=== PATIENT | male | born 1975 | race Hispanic/Latino ===

== ENCOUNTER 2016-09-01 23:34 | Emergency (ER) | payer SELFPAY ==
[~2016-09-01] VITALS: Ht 160 cm; Wt 90.0 kg
[2016-09-02] MEDS ORDERED: NAPROSYN500 MG PO (00:12)
[2016-09-02 00:15] VITALS: BP 121/80
== END 2016-09-02 00:15 | disposition home or self-care (01) | DRG 563 ==
LOC: ED 23:34
DX: S93.402A Sprain of unspecified ligament of left ankle, initial encounter (principal); X50.1XXA Overexertion from prolonged static or awkward postures, initial encounter; Y92.512 Supermarket, store or market as the place of occurrence of the external cause; Y99.9 Unspecified external cause status

== ENCOUNTER 2018-12-24 04:29 | Inpatient (IN) | payer SELFPAY ==
[~2018-12-24] VITALS: Ht 162.6 cm; Wt 103.0 kg
[2018-12-24] VITALS (15 sets, daily range): BP systolic 113–159; BP diastolic 61–100
[~2018-12-24 04:29] MED LIST: NAPROSYN500 MG PO
--- NOTE | 2018-12-24 04:31 | NUR ---
BY WC TO ROOM
[2018-12-24 04:57] LABS: HEMATOCRIT 51.6 % (39.0-50.0); HEMOGLOBIN 16.8 g/dl (14.0-18.0); IMMATURE GRANULOCYTES 0.3 % (0.0-5.0); MEAN CELL VOLUME 90.5 fL CALC (80.0-100.0); MEAN CORPUSCULAR HGB 29.5 pG CALC (26.0-32.0); MEAN CORPUSCULAR HGB CONC 32.6 g/L CALC (32.0-36.0); NEUT# 3.82 thou/uL (1.82-7.42); RED BLOOD COUNT 5.7 mill/uL (4.70-6.10); RED CELL DISTRI WIDTH 13.4 % (11.5-15.5)
[2018-12-24 05:11] LABS: ALBUMIN 4.5 g/dL (3.2-5.0); ALKALINE PHOSPHATASE 116 u/l (38-126); AMYLASE 90 u/l (30-110); ANION GAP 15 (6-22 (CALC)); BILIRUBIN, TOTAL 0.4 mg/dL (0.0-1.4); BUN 20 mg/dL (9-20); BUN/CREATININE RATIO 31 (12-20 (CALC)); CARBON DIOXIDE 30 mmol/l (22-30); CHLORIDE 98 mmol/l (95-108); CREATININE 0.7 mg/dL (0.7-1.3); GFR > 60 ML/MIN (>=60 (CALC)); GFR FOR AFR.AMER. > 60 ML/MIN (>=60 (CALC)); LIPASE 103 u/l (23-300); POTASSIUM 4.6 mmol/l (3.5-5.1); SGOT/AST 60 u/l (17-59); SODIUM 138 mmol/l (137-146); TOTAL PROTEIN 7.9 g/dL (6.3-8.2)
[2018-12-24 05:22] LABS: MYOGLOBIN 28 ng/mL (0 - 121)
--- NOTE | 2018-12-24 05:35 | NUR ---
PT HAS LOUD SNORING RESP EFFORT SAO2 DIPS TRO MID 80'S WHEN ASLEEP BUT POPS UP TO 96% WHEN AWAKENED.W/P/D SKIN
--- NOTE | 2018-12-24 06:03 | NUR ---
AWAKENED FROM SLEEP DENIES CP SNORING RESP EFFORT WHEN ASLEEP.WITHOUT CONGESTION W/P/D SKIN SR NO ECTOPY
--- NOTE | 2018-12-24 07:05 | NUR ---
REPORT TAKEN FROM BORA RN FOR CONTINUATION OF CARE.
--- NOTE | 2018-12-24 07:07 | NUR ---
WALKED INTO ROOM, PT LOUDLY SNORING BUT EASILY AWAKEN, SATS WERE 82% BUT WHEN WOKE UP SATS WENT STRAIGHT UP TO 96%, PT STATES HAS NEVER BEEN DIAGNOSED WITH SLEEP APNEA, BUT HAS HAD PROBLEMS MOST OF HIS ADULT LIFE WITH RESTLESS SLEEPING. PT IS A MOUTH BREATHER. ALERT/ORIENTED X3, DR. ACOSTA SPEAKING TO PT ABOUT POSSIBLE ADMISSION AND PLACING HIM ON BIPAP. PT AGREES.
--- NOTE | 2018-12-24 07:28 | NUR ---
PT RESTING QUIETLY ON STRETCHER, CALL LIGHT WITHIN REACH, SIDE RAILS UIP, BIPAP ON PT. SATS 98%
--- NOTE | 2018-12-24 07:29 | NUR ---
PT PLACED ON BIPAP PER DR. ENRIQUEZ 17/09/% PT TOLLERATING WELL. REPEAT AQBG UN 1 HR
--- NOTE | 2018-12-24 07:35 | NUR ---
SATS AT 98% ON BIPAP, PT SLEEPING AT THIS TIME, URINE OUTPUT APPROX 80CC LIGHT YELLOW COLOR. PLACED PAIR OF RED TENNIS SHOES AND WHITE TSHIRT AND BLUE BALL HAT IN BELONGINGS BAG. IV SITE HEALTHY AND PATENT.
[2018-12-24 08:05] LABS: URINE BILIRUBIN - DIPSTICK NEGATIVE (NEGATIVE); URINE BLOOD DIPSTICK NEGATIVE (NEGATIVE); URINE COLOR YELLOW; URINE GLUCOSE - DIPSTICK NEGATIVE (NEGATIVE); URINE KETONE NEGATIVE (NEGATIVE); URINE LEUK ESTERASE NEGATIVE (NEGATIVE); URINE NITRITE - DIPSTICK NEGATIVE (Negative); URINE PROTEIN - DIPSTICK NEGATIVE (NEG-TRACE); URINE SPECIFIC GRAVITY <=1.005; URINE UROBILINOGEN - DIPSTICK 0.2 E.U./dL (0.2)
--- NOTE | 2018-12-24 08:10 | NUR ---
PT ADMITTED TO ICU BED 4 FROM ED VIA STRETCHER FOR CP,PALPITATIONS SLEEP APNEA,RESPIRATORY ACIDOSIS.TRANSFERRED SELF WITH STEADY GAIT. PT A&OX4, ABLE TO MAKE NEEDS KNOWN. NSR ON TELEMETRY, HR 76. REPORT 3/10 PAIN AT CHEST, NITRO PATCH INPLACE FROM ED. REMAINS ON 02@2LPM VIA NC. RESPIRATIONS EVEN/UNLABORED, LS CLEAR THROUGHOUT. ABDOMEN SOFT, NON-TENDER. PT REPORTS LBM 9-22-19. BSX4 ACTIVE, PT NOTED WITH MULTPLE PSORIASIS LEGIONS FROM SCALP TO FEET. CONTINENT OF B&B, URINAL AT BEDSIDE. PT ORIENTED TO BED, CALL LIGHT SYSTEM, UNIT.BIPAP ON STANDBY AT BEDSIDE. PT VERBALIZED UNDERSTANDING TO LIDIA CALIX LPN. CALL LIGHT IN REACH. WILL MONITOR.
--- NOTE | 2018-12-24 08:21 | NUR ---
PT REPORT GIVEN, AND PT TAKEN TO FLOOR PER STRETCHER AND MONITER.
--- NOTE | 2018-12-24 08:30 | NUR ---
PT REPOSITIONED SELF, BREAKFAST TRAY PROVIDED.
--- NOTE | 2018-12-24 09:22 | NUR ---
RT NOTIFIED, PT SLEEPING, O2SAT DROP TO 70-80%. CAROL AT BEDSIDE TO INITIATE BIPAP, SET RATE 16/6, FIO2@45%. WILL MONITOR
--- NOTE | 2018-12-24 09:55 | NUR ---
NOTIFIED RT TO CHECK BIPAP, ALARMS SOUNDED, PT 02SAT@80%. RT AT BEDSIDE TO MAKE ADJUSTMENTS, WILL MONITOR. PT REMAINS IN AND OUT OF SLEEP, TOLERATING ADJUSTMENTS WELL, SEE RT NOTE. WILL MONITOR CLOSELY.
--- NOTE | 2018-12-24 10:17 | NUR ---
CAROL RT AT BEDSIDE FOR BLOOD GAS
--- NOTE | 2018-12-24 10:30 | NUR ---
DR. MACK AT BEDSIDE FOR ASSESSMENT AND TO DISCUSS PLAN OF CARE. NEW ORDERS RECIEVED.
--- NOTE | 2018-12-24 10:33 | NUR ---
DR. MACK NOTIFIED OF CRITICAL LAB, NO NEW ORDERS.
[2018-12-24 11:17] LABS: MAGNESIUM 1.9 mg/dL (1.6-2.3)
--- NOTE | 2018-12-24 12:06 | NUR ---
PT RESTING IN BED WITH EYES CLOSED, AROUSES EASILY. PT REMAINS ON BIPAP. SA02@97%. NSR ON TELEMETRY, HR 88. CALL LIGHT IN REACH, WILL MONITOR.
--- NOTE | 2018-12-24 13:04 | NUR ---
PT SLEEPING WITH BIPAP IN PLACE, NSR ON TELEMETRY, CALL LIGHT IN REACH, MONITORING CLOSELY.
--- NOTE | 2018-12-24 14:15 | NUR ---
PT INCONTINENT ON URINE, PERICARE PROVIDED, LINENS CHANGED. PT OFF BIPAP TO EAT, GF AT BEDSIDE. RESPIRATIONS EVEN/UNLABORED. SAO2@97% ON @2LPM VIA NC. CALL LIGHT IN REACH. WILL MONITOR.
--- NOTE | 2018-12-24 14:58 | NUR ---
PT ASSISTED TO BSC, SMALL BM, THEN BACK TO BED. PT REMIANS OFF BIPAP. 02@2LPM. PT TOLD TO NOTIFY STAFF WHEN TIRED, FOR NAPS OR SLEEPING. PT VERBALIZED UNDERSTANDING. CALL LIGHT IN REACH, WILL MONITOR.
--- NOTE | 2018-12-24 15:12 | NUR ---
BIPAP REPLACED, PT FALLING ASLEEP.
--- NOTE | 2018-12-24 16:06 | NUR ---
PT SLEEPING WITH BIPAP IN PLACE, RESPIRATIONS EVEN/UNLABORED, NSR ON TELEMETRY, HR 92. WILL MONITOR.
--- NOTE | 2018-12-24 17:25 | NUR ---
RT AT BEDSIDE TO ASSESS BIPAP, PT SLEEPING, RESPIRATIONS EVEN/UNLABORED.
--- NOTE | 2018-12-24 18:15 | NUR ---
PT RESTING WITH EYES CLOSED, BIPAP IN PLACE. SR ON TELEMETRY, HR 80. CALL LIGHT IN REACH. WILL MONITOR.
--- NOTE | 2018-12-24 18:57 | NUR ---
REPORT RECEIVED FROM MONICA GOOD. PT RESTING IN BED SEMI FOWLERS WITH EYES CLOSED AND NO SIGNS OF DISTRESS. RESPIRATIONS EVEN AND UNLABORED ON BIPAP WITH FI02 AT 45%; OXYGEN SATURATION 93%. SAFETY MEASURES IN PLACE. CALL LIGHT WITHIN REACH.
--- NOTE | 2018-12-24 19:51 | NUR ---
PT OFF BIPAP. CURRENTLY ON NC 3L; SITTING UP EATING DINNER. RT AT BEDSIDE. ASSESSMENT COMPLETED. PT DENIES PAIN AND SOB. NITRO PASTE REMOVED FROM LEFT CHEST. VSS. PLAN OF CARE REVIEWED. PT ENCOURAGED TO VERBALIZE CONCERNS. STATES UNDERSTANDING. CALL LIGHT WITHIN REACH.
--- NOTE | 2018-12-24 22:46 | NUR ---
RT AT BEDSIDE TO REAPPLY BIPAP. PT VOIDED 450ML DARK YELLOW URINE WITHOUT DIFFICULTY.
--- NOTE | 2018-12-24 22:57 | NUR ---
MAGNESIUM SULFATE NOW INFUSING PER PROTOCOL FOR MAG OF 1.9; IV SITE APPEARS HEALTHY AND FLUSHED WELL. PT HAS NO REQUESTS OR CONCERNS AT THIS TIME.
[2018-12-25] VITALS (16 sets, daily range): BP systolic 119–153; BP diastolic 66–95
--- NOTE | 2018-12-25 01:27 | NUR ---
MAG SULFATE COMPLETED AND IV SITE FLUSHED. PT ASLEEP WITH NO SIGNS OF DISTRESS. RESPIRATIONS EVEN AND UNLABORED WITH BIPAP IN PLACE. NSR ON TELEMETRY HR IN THE 80S-90S. VSS.
--- NOTE | 2018-12-25 04:00 | NUR ---
NO ACUTE CHANGES IN CONDITION THROUGHOUT THE NIGHT. VSS. SAFETY MEASURES IN PLACE. CALL LIGHT WITHIN REACH.
--- NOTE | 2018-12-25 05:17 | NUR ---
RT AT BEDSIDE FOR EKG. BIPAP REMAINS IN PLACE AT 32% FIO2; OXYGEN SATURATION 97%.
--- NOTE | 2018-12-25 06:29 | NUR ---
PT RESTING SEMI FOWLERS WITH EYES CLOSED. STABLE CONDITION. CONTINUES TO DENY PAIN AND SOB. AWAKENS TO VERBAL STIMULI.
--- NOTE | 2018-12-25 07:17 | NUR ---
pt resting in bed with eyes closed; easily aroused; offers no complaints; assessment completed at this time; pt alert and oriented; denies pain/ chest pain; no n/v/sob noted; pt djiboutian only but able to understand some thai and make needs known; hydraulic governor assembler line utilized/ Virgilio ID # [id number]; resp even and unlabored; lungs clear bipap intact with 32% FiO2; converted to 3L nc at this time; hr reg; strong pulses; no edema noted; sr on monitor; abd soft with bs present; no bm noted per sba underwriter; no urine to inspect at this time; urinal at bedside; #20 flushed and patent to lac; no redness or edema noted at site; plan of care explained; pt denies drinking ETOH since last week via hydraulic governor assembler; call light within reach; will continue to monitor
--- NOTE | 2018-12-25 08:02 | NUR ---
awake in bed; no apparent distress noted; pt offers no complaints; sr on monitor; no distress noted; will continue to monitor
--- NOTE | 2018-12-25 08:35 | NUR ---
Dr Almonte present at bedside to assess pt and discuss plan of care; Andre Cormier, RN at bedside to interpret; o2 removed at this time; o2 sats maintained at 93%; pt set up for am care; will continue to monitor
--- NOTE | 2018-12-25 09:24 | NUR ---
awake in bed; visitor x1 present at bedside; pt noted conversing well in danish with visitor; walk test explained; will continue to monitor
--- NOTE | 2018-12-25 09:38 | NUR ---
walk test completed per RT Joelle; monitoring attachments explained and re attached; will continue to monitor
--- NOTE | 2018-12-25 10:05 | NUR ---
awake in bed; no apparent distress noted; denies pain; sr on monitor; o2 per nc at 2L; call light within reach; will continue to monitor
--- NOTE | 2018-12-25 10:20 | NUR ---
RICCI Espinosa and Juliocesar Tong present at bedside;
--- NOTE | 2018-12-25 12:03 | NUR ---
awake in bed; no apparent distress noted; pt offer no complaints; denies pain/ chest pain; sr on monitor; iv intact; call light within reach; will continue to monitor
--- NOTE | 2018-12-25 14:03 | NUR ---
pt awake in bed; no distress noted; resp even and unlabored; o2 per nc; sr on monitor; call light within reach; will continue to monitor
--- NOTE | 2018-12-25 15:54 | NUR ---
Dr Almonte present at bedside to assess pt and discuss plan of care/ discharge
--- NOTE | 2018-12-25 15:54 | NUR ---
Discharge instructions given. Patient verbalizes understanding of same. Discharged in stable condition via Wheelchair to Home with friend. All belongings sent with pt.
--- NOTE | 2018-12-25 16:00 | NUR ---
awake in bed; npo apparent distress noted; sr on monitor; aware of pending discharge
--- NOTE | 2018-12-25 16:05 | NUR ---
[facility] called per this telegraphic typewriter installer; spoke with Ofelia; information/ demographic provided for follow up appt; f/u appt scheduled for 12/27/18 at 10:[address] [place] [address] Huston; cardiology and sleep study availability confirmed;
--- NOTE | 2018-12-25 16:45 | NUR ---
discharge instructions reviewed in detail with pt; Andre Cormier RN at bedside to interpret; pt informed of scheduled appt with Dr Huston at [facility]; #20 removed from lac with catheter tip intact;
== END 2018-12-25 16:54 | disposition home or self-care (01) | DRG 205 ==
LOC: ED 04:29 → ED-I 06:55 → ED 07:15 → ICU 07:16
PROVIDERS: Emergency Medicine; ADMIT Internal Medicine; ATTEND Internal Medicine
PROC: 5A09357 Assistance with Respiratory Ventilation, Less than 24 Consecutive Hours, Continuous Positive Airway Pressure (ICD-10-PCS; principal; 2018-12-24)
DX: E66.2 Morbid (severe) obesity with alveolar hypoventilation (principal); J96.02 Acute respiratory failure with hypercapnia; J96.01 Acute respiratory failure with hypoxia; E87.2 Acidosis; G47.33 Obstructive sleep apnea (adult) (pediatric); F10.10 Alcohol abuse, uncomplicated; Z68.39 Body mass index [BMI] 39.0-39.9, adult
CPT/HCPCS: J3475

== ENCOUNTER 2020-01-07 11:00 | Emergency (ER) | payer SELFPAY ==
[~2020-01-07] VITALS: Ht 162.6 cm; Wt 100.0 kg
[2020-01-07] MEDS ORDERED: COLCHICINE0.6 M2 PO (11:17)
[2020-01-07] MEDS ORDERED: MOTRIN400 MG PO (11:17)
[2020-01-07] MEDS ORDERED: GABAPENTIN300 M2 PO (11:17)
[2020-01-07 12:34] VITALS: BP 122/69
== END 2020-01-07 12:34 | disposition home or self-care (01) | DRG 554 ==
LOC: ED 11:00
DX: M10.062 Idiopathic gout, left knee (principal); M10.061 Idiopathic gout, right knee; E66.01 Morbid (severe) obesity due to excess calories; F17.200 Nicotine dependence, unspecified, uncomplicated; L40.9 Psoriasis, unspecified; T42.6X6A Underdosing of other antiepileptic and sedative-hypnotic drugs, initial encounter; Z91.128 Patient's intentional underdosing of medication regimen for other reason

== ENCOUNTER 2020-02-03 20:01 | Observation (INO) | payer SELFPAY ==
[~2020-02-03] VITALS: Ht 162.6 cm; Wt 94.0 kg
[~2020-02-03 20:01] MED LIST changes: +COLCHICINE0.6 M2 PO; +GABAPENTIN300 M2 PO; +MOTRIN400 MG PO
--- NOTE | 2020-02-03 20:10 | NUR ---
TO ROOM VIA W/C..TRANSFERRED TO BED.
[2020-02-03 20:51] LABS: IMMATURE GRANULOCYTES 0.2 % (0.0-5.0); MEAN CELL VOLUME 87.1 fL CALC (80.0-100.0); MEAN CORPUSCULAR HGB 28.2 pG CALC (26.0-32.0); MEAN CORPUSCULAR HGB CONC 32.4 g/dL CAL (32.0-36.0); NEUT# 4.86 thou/uL (1.82-7.42); RED BLOOD COUNT 4.79 mill/uL (4.70-6.10); RED CELL DISTRI WIDTH 12.6 % (11.5-15.5)
[2020-02-03 20:54] LABS: HEMATOCRIT 41.7 % (39.0-50.0); HEMOGLOBIN 13.5 g/dl (14.0-18.0)
[2020-02-03 21:11] LABS: ALBUMIN 3.8 g/dL (3.2-5.0); ALKALINE PHOSPHATASE 72 u/l (38-126); AMYLASE 58 u/l (30-110); ANION GAP 11 (6-22 (CALC)); BILIRUBIN, TOTAL 0.5 mg/dL (0.0-1.4); BUN 6 mg/dL (9-20); BUN/CREATININE RATIO 11 (12-20 (CALC)); CARBON DIOXIDE 32 mmol/l (22-30); CHLORIDE 97 mmol/l (95-108); CREATININE 0.6 mg/dL (0.7-1.3); GFR > 60 ML/MIN (>=60 (CALC)); GFR FOR AFR.AMER. > 60 ML/MIN (>=60 (CALC)); LIPASE 44 u/l (23-300); POTASSIUM 4.2 mmol/l (3.5-5.1); SGOT/AST 30 u/l (17-59); SODIUM 137 mmol/l (137-146); TOTAL PROTEIN 7.1 g/dL (6.3-8.2)
[2020-02-03 21:12] LABS: URINE BILIRUBIN - DIPSTICK NEGATIVE (NEGATIVE); URINE BLOOD DIPSTICK NEGATIVE (NEGATIVE); URINE COLOR YELLOW; URINE GLUCOSE - DIPSTICK NEGATIVE (NEGATIVE); URINE KETONE NEGATIVE (NEGATIVE); URINE LEUK ESTERASE NEGATIVE (NEGATIVE); URINE NITRITE - DIPSTICK NEGATIVE (Negative); URINE PH 8.5 (4.5-8.0); URINE PROTEIN - DIPSTICK NEGATIVE (NEG-TRACE); URINE UROBILINOGEN - DIPSTICK 0.2 E.U./dL (0.2)
--- NOTE | 2020-02-03 21:15 | NUR ---
RESTING QUIETLY AWAITING TEST RESULTS
[2020-02-03 21:22] LABS: MYOGLOBIN 21 ng/mL (0 - 121)
--- NOTE | 2020-02-03 22:00 | NUR ---
RESTING QUIETLY AWAITING TEST RESULTS
--- NOTE | 2020-02-03 23:09 | NUR ---
AWAITING DISPO. VSS. AGARWAL.
--- NOTE | 2020-02-03 23:50 | NUR ---
Admission Note Report Given to: MONICA MCINTYRE Transported by: X Wheelchair Stretcher Transported with: X Nurse Transporter X Patent IV O2 X Automotive Product Specialist Location: ICU X MS2
--- NOTE | 2020-02-03 23:55 | NUR ---
PATIENT ARRIVES VIA WHEELCHAIR ACCOMPANIED BY ER NURSE JOSHUA. PT AWAKE, ORIENTED X4. CENTRAL AFRICAN SPEAKING, ONLY ADMITS TO KNOWING SIMPLE WORDS IN [place]. DENIES CHEST PAIN, HAS BILATERAL KNEE PAIN THAT HE REPORTS RADIATES TO HIS HEELS, RATES PAIN NOW 8/10 AND PAIN MEDICATION AT ER DID PROVIDE RELIEF. NURSE ASSESSMENT PERFORMED. POC DISCUSSED, PATIENT UNDERSTANDS AND AGREES. LAC 20 IV INTACT, FLUSHES PROPERLY, SALINE LOCKED. ON RA, NO SOB NOTED, AFEBRILE, O2 SAT 94%. WAS SWABBED FOR COVID, NO SYMPTOMS PRESENT, IGG WAS POSITIVE. ONLY MEDICATION HE TAKES AT HOME IS GABAPENTIN 300 MG TID, WHICH HE STATES HE TAKES MAYBE TWICE A DAY. HE REPORTS HE DRINKS HERBAL TEAS FROM A PLANT HE HAS AT HOME. PATIENT DOES SAY HE HAS BEEN HAVING STRESS DUE TO NOT BEING ABLE TO WORK, FINANCIAL INSTABILITY, AND NOT BEING ABLE TO SEND MONEY TO HIS CHILDREN IN [place] FOR THEIR SCHOOL, PT DOES BEGIN TO TEAR UP, PT NEEDS REASSURANCE AT TIMES. REQUESTS FOOD AND ICED WATER, WILL PROVIDE. SELF REPSOITIONS, USES A CRUTCH TO WALK. PATCHES OF DRY SKIN NOTED TO ALL EXTREMETIES, ABDOMEN AND BACK SIDE FROM PSORIASIS. CALL LIGHT WITHIN REACH.
[2020-02-04] VITALS: BP 117/60
--- NOTE | 2020-02-04 03:33 | NUR ---
PAIN MEDICATION GIVEN. NO OTHER COMPLAINTS, DENIES CHEST PAIN. CALL LIGHT WITHIN REACH.
[2020-02-04 04:00] VITALS: BP 124/76
--- NOTE | 2020-02-04 05:47 | NUR ---
EKG TAKEN THIS AM, NSR.
--- NOTE | 2020-02-04 06:50 | NUR ---
REPORT RECEIVED FROM NIGHT NURSE. PT RESTING IN BED. NO S/S OF DISTRESS AT THIS TIME. SAFETY PRECAUTIONS IN PLACE. WILL CONTINUE TO MONITOR.
--- NOTE | 2020-02-04 08:50 | NUR ---
PT note: Patient is screened for PT intervention and no needs are indentified at this time
--- NOTE | 2020-02-04 08:55 | NUR ---
PT RESTING IN BED, ALERT AND ORIETNED. RESPIRATIONS ARE EVEN AND UNLABORED ON RA. LUNGS SOUND DIMINISHED. PEDAL PULSES ARE WEAK. PT DENIES ANY PAIN OR DISCOMFORT AT THIS TIME. PT ASSISTED TO THE RESTROOM PER REQUEST. PT ENCOURAGED TO CALL FOR ASSISTANCE WHEN FINISHED. SAFETY PRECAUTIONS IN PLACE. WILL CONTINUE TO MONITOR.
[2020-02-04 08:57] VITALS: BP 117/75
[2020-02-04 11:15] VITALS: BP 115/73
[2020-02-04] MEDS ORDERED: IBUPROFEN600 MG PO (12:32)
[2020-02-04] MEDS ORDERED: MEDDOSEPAK PO (12:32)
--- NOTE | 2020-02-04 12:46 | NUR ---
PT RESTING IN BED ALERT AND ORIENTED.NO S/S OF DISTRESS AT THIS TIME. SAFETY PRECAUTIONS IN PLACE. WILL CONTINUE TO MONITOR.
--- NOTE | 2020-02-04 14:44 | NUR ---
PT RESTING IN BED, ALERT AND ORIENTED. PT PROVIDED WITH DISCHARGE PACKET AND PRESCRIPTIONS, PT DENIES ANY QUESTIONS AT THIS TIME. IV #20 LAC REMOVED CATHETER INTACT. ASSISTED PT TO MAKE A CALL. SAFETY PRECAUTIONS IN PLACE. WILL CONTINUE TO MONITOR.
--- NOTE | 2020-02-04 15:00 | NUR ---
Discharge instructions given. Patient verbalizes understanding of same. Discharged in 3stable condition via Wheelchair to Home with staff. All belongings sent with pt.
== END 2020-02-04 15:00 | disposition home or self-care (01) | DRG 313 ==
LOC: ED 20:01 → ED-I 20:46 → ED 23:39 → MS2 23:40
PROVIDERS: Emergency Medicine; ADMIT Internal Medicine; ATTEND Internal Medicine
DX: R07.9 Chest pain, unspecified (principal); M25.562 Pain in left knee; M25.561 Pain in right knee; E66.01 Morbid (severe) obesity due to excess calories; L40.9 Psoriasis, unspecified; R76.8 Other specified abnormal immunological findings in serum; F17.200 Nicotine dependence, unspecified, uncomplicated; Z68.35 Body mass index [BMI] 35.0-35.9, adult; Z20.828 Contact with and (suspected) exposure to other viral communicable diseases
CPT/HCPCS: G0378

== ENCOUNTER 2020-09-22 20:54 | Observation (INO) | payer SELFPAY ==
[~2020-09-22] VITALS: Ht 162.6 cm; Wt 100.0 kg
[2020-09-22 00:49] VITALS: BP 118/82
[~2020-09-22 20:54] MED LIST changes: +IBUPROFEN600 MG PO; +MEDDOSEPAK PO
--- NOTE | 2020-09-22 21:00 | NUR ---
PT MOVED TO ROOM 10 FOR TRIAGE.
[2020-09-22 21:26] LABS: HEMOGLOBIN 13.8 g/dl (14.0-18.0); IMMATURE GRANULOCYTES 0.8 % (0.0-5.0); MEAN CELL VOLUME 87.4 fL CALC (80.0-100.0); MEAN CORPUSCULAR HGB 29.4 pG CALC (26.0-32.0); MEAN CORPUSCULAR HGB CONC 33.7 g/dL CAL (32.0-36.0); NEUT# 7.64 thou/uL (1.82-7.42); RED BLOOD COUNT 4.69 mill/uL (4.70-6.10); RED CELL DISTRI WIDTH 12.5 % (11.5-15.5)
[2020-09-22 21:42] LABS: ALBUMIN 4.4 g/dL (3.2-5.0); ALKALINE PHOSPHATASE 105 u/l (38-126); ANION GAP 18 (6-22 (CALC)); BILIRUBIN, TOTAL 0.3 mg/dL (0.0-1.4); BUN 16 mg/dL (9-20); BUN/CREATININE RATIO 22 (12-20 (CALC)); CARBON DIOXIDE 26 mmol/l (22-30); CHLORIDE 95 mmol/l (95-108); CREATININE 0.7 mg/dL (0.7-1.3); GFR > 60 ML/MIN (>=60 (CALC)); GFR FOR AFR.AMER. > 60 ML/MIN (>=60 (CALC)); POTASSIUM 3.9 mmol/l (3.5-5.1); SGOT/AST 35 u/l (17-59); SODIUM 135 mmol/l (137-146)
--- NOTE | 2020-09-22 22:00 | NUR ---
RESTING QUIETLY AWAITING TEST RESULTS.
--- NOTE | 2020-09-22 23:00 | NUR ---
AWAITING TEST RESULTS/DISPO.
--- NOTE | 2020-09-23 00:43 | NUR ---
Admission Note Report Given to: MONICA THOMAS Transported by: X Wheelchair Stretcher Transported with: X Nurse Transporter X Patent IV O2 Engineering Systems Analyst Location: ICU X MS2
--- NOTE | 2020-09-23 01:45 | NUR ---
PATIENT ARRIVED TO FLOOR AT 0050, RECEIVED REPORT FROM NURSE ROSANA, PATIENT TRASNPORTED VIA WHEELCHAIR WITH ONGOING IV VANCOMYCIN INFUSING WELL ON LAC G20, NOTED TO HAVE LEFT FACIAL SWELLING, DRY FLAKY SKIN NOTED ON LEFT OCCIPITAL AREA, PATCHES ON BILAT ARMS AND BILATERAL LEGS STATED HAS PSORIASIS, PATIENT ON NPO PER ED DR, PATIENT ORIENTED TO ROOM AND CALL LIGHT SYSTEM.
[2020-09-23 04:00] VITALS: BP 130/81
--- NOTE | 2020-09-23 04:41 | NUR ---
PATIENT RESTING IN BED, WITH EYES CLOSED, BREATHING UNLABORED CALL LIGHT AT REACH.
[2020-09-23 07:59] VITALS: BP 118/90
--- NOTE | 2020-09-23 07:59 | NUR ---
PT LAYING IN BED. A&O X4. NO DISTRESS NOTED. PT C/O PAIN IN LT EAR RADIATING TO BACK OF HEAD 07/12, DENIES THE NEED FOR ANY PAIN MEDICATION AT THIS TIME. CLEAR BREATH SOUNDS HEARD UPON AUSCULTATION. ACTIVE BOWEL SOUNDS X4 QUADRANTS. FACIAL SWELLING NOTED TO LT SIDE, PER PT SYMPTOM ONSET BEGAN APPROXIMATELY 8 DAYS AGO. STATES PAIN IS BETTER COMPARED TO PREVIOUS DAYS. TRACE EDEMA NOTED TO BLE. IV HEALTHY AND PATENT INFUSING PER MAR ORDERS. NO OTHER NEEDS AT THIS TIME. CALL LIGHT WITHIN REACH. ASSESSMENT COMPLETED. DISCUSSED POC.
[2020-09-23 08:41] LABS: HEMATOCRIT 40.2 % (39.0-50.0); HEMOGLOBIN 13.4 g/dl (14.0-18.0); IMMATURE GRANULOCYTES 0.6 % (0.0-5.0); MEAN CELL VOLUME 88.5 fL CALC (80.0-100.0); MEAN CORPUSCULAR HGB 29.5 pG CALC (26.0-32.0); MEAN CORPUSCULAR HGB CONC 33.3 g/dL CAL (32.0-36.0); NEUT# 6.8 thou/uL (1.82-7.42); RED BLOOD COUNT 4.54 mill/uL (4.70-6.10)
--- NOTE | 2020-09-23 12:54 | NUR ---
PT ASSISTED BACK INTO BED. STEADY GAIT OBSERVED. PT C/O OF PAIN 07/12, DENIES THE NEED OF PAIN MEDICATION AT THIS TIME. NO OTHER NEEDS AT THIS TIME. CALL LIGHT WITHIN REACH.
--- NOTE | 2020-09-23 15:14 | NUR ---
S: ESCOBARMARIELA CONTRERAS is a 45 M who presents with cellulitis. He has a history of psoriasis, morbid obesity. gout. All medications in patient's chart were reviewed. O: VS: BP 118/90 mmHg, P 86 bpm, RR 19 bpm, T 97.2 F W 100 kg, HT 64 IN, Scr= 0.7 ,CrCl= 192.5 ml/min A: Blood cultures are pending. P: Patient is on Unasyn 3 g IV Q6H. Vancomycin ordered for pharmacy to dose. Start Vancomycin 1250 mg IV Q8H. Vancomycin trough is drawn before the 4th dose on 09/24 @ 1030. Vancomycin goal trough is between 10-15 mcg/ml. Pharmacy will follow and or advise on antibiotics use as needed.
--- NOTE | 2020-09-23 15:25 | NUR ---
DR RIVERA CONSULT IN PROGRESS
--- NOTE | 2020-09-23 17:10 | NUR ---
PT C/O OF PAIN / DISCOMFORT. PAIN MEDICATION REQUESTED. PAIN MEDICATION TO BE GIVEN . CALL LIGHT WITHIN REACH.
[2020-09-23 19:03] VITALS: BP 117/71
--- NOTE | 2020-09-23 20:15 | NUR ---
PT REWSTING QUIETLY IN BED, IV FLUIDS CONTINUES WITH IV ABT SCHEDULED. NO S/S OF IV INFILTRATION AT THIS TIME. BREATHING EVEN AND UNLABORED. ASSESSMENTS COMPLETED AT BEDSIDE, PLEASE SEE DOCUMENTATION.LEFT SIDE OF FACE REMAINS SLIGHLY SWOLLEN. PT NOTED TO HAVE PSORIASIS THROUGHOUT BODY. NO COMPLAINTS VOICED. REPORTS MINIMAL PAIN, REFUSED PAIN MEDS AT THIS TIME. SAFETY PRECAUTIONS IN PLACE, BED IN LOWEST POSITION, CALL LIGHT WITHIN REACH. WILL MONITOR
--- NOTE | 2020-09-24 00:20 | NUR ---
PT RESTING QUIETLY, NO CONCERNS VOICED. NO S/S OF DISTRESS NOTED. SAFETY PRECAUTIONS REMAIN IN PLACE, WILL MONITOR
[2020-09-24 04:00] VITALS: BP 132/81
--- NOTE | 2020-09-24 04:41 | NUR ---
PT RESTING COMFORTABLY AT THIS TIME. IV ABT CONTINUES. PT REPORTED PAIN EARLIER IN SHIFT AND MORPHIHNE WAS ADMINSTERED PER ORDER. NO S/S OF DISTRESS. SAFETY PRECAUTIONS IN PLACE. WILL MONITOR
[2020-09-24 05:43] LABS: HEMATOCRIT 37.8 % (39.0-50.0); HEMOGLOBIN 12.6 g/dl (14.0-18.0); MEAN CELL VOLUME 89.4 fL CALC (80.0-100.0); MEAN CORPUSCULAR HGB 29.8 pG CALC (26.0-32.0); MEAN CORPUSCULAR HGB CONC 33.3 g/dL CAL (32.0-36.0); RED BLOOD COUNT 4.23 mill/uL (4.70-6.10); RED CELL DISTRI WIDTH 12.9 % (11.5-15.5)
[2020-09-24 06:03] LABS: ANION GAP 12 (6-22 (CALC)); BUN 10 mg/dL (9-20); BUN/CREATININE RATIO 17 (12-20 (CALC)); CARBON DIOXIDE 28 mmol/l (22-30); CHLORIDE 100 mmol/l (95-108); CREATININE 0.6 mg/dL (0.7-1.3); GFR > 60 ML/MIN (>=60 (CALC)); GFR FOR AFR.AMER. > 60 ML/MIN (>=60 (CALC)); POTASSIUM 4.5 mmol/l (3.5-5.1); SODIUM 136 mmol/l (137-146)
--- NOTE | 2020-09-24 12:45 | NUR ---
S: ESCOBARMARIELA CONTRERAS is a 45 M who presents with cellulitis. He has a history of psoriasis, morbid obesity, gout. All medications in patient's chart were reviewed. O: VS: BP 132/81 mmHg, P 88 bpm, RR 18 bpm,T 97.0 F W 100 kg, HT 64 IN, Scr= 0.6 mg/dL, CrCl= 169.6 ml/min Vancomycin trough level = 11 ug/ml A: Blood culture is pending. P: Patient is on Unasyn 3 g IV Q6H and vancomycin 1250 mg IV Q8H. Vancomycin ordered for pharmacy to dose. Continue Vancomycin 1250 mg IV Q8H. Vancomycin trough is drawn before the 4th dose on 09/25 @ 1030. Vancomycin goal trough is between 10-15 mcg/ml. Pharmacy will follow and or advise on antibiotics use as needed.
[2020-09-24 15:00] VITALS: BP 113/76
[2020-09-24] MEDS ORDERED: AZITHROMYCIN500 MG PO (15:29)
[2020-09-24] MEDS ORDERED: AMOX/K CLAV875 M1 PO (15:29)
[2020-09-24 19:00] VITALS: BP 132/88
--- NOTE | 2020-09-24 19:50 | NUR ---
PT DISCHARGED PER ORDER. D/C INSTRUCTIONS REVIEWED WITH PT, PT VERBALIZED UNDERSTANDING. INSTRUCTED PT ON SCHEDULING CT SCAN IN ONE MONTH. D/C INSTRUCTIONS SIGNED. PT FRIEND PICKUP PT FROM ER ENTRANCE. PT ESCORTED BY MED SURG STAFF VIA W/C @ [id number].
== END 2020-09-24 19:44 | disposition home or self-care (01) | DRG 603 ==
LOC: ED 20:54 → ED-I 23:05 → ED 23:33 → MS2 23:34
PROVIDERS: Family Medicine; Internal Medicine; Nurse Practitioner; Nurse Practitioner Family; ADMIT Internal Medicine; ATTEND Internal Medicine
DX: L03.221 Cellulitis of neck (principal); R59.0 Localized enlarged lymph nodes; L40.9 Psoriasis, unspecified; M10.9 Gout, unspecified; E66.01 Morbid (severe) obesity due to excess calories; Z68.37 Body mass index [BMI] 37.0-37.9, adult; Z20.822 Contact with and (suspected) exposure to COVID-19
CPT/HCPCS: G0378; J1650; J3370; Q3014; Q9967